=== PATIENT | male | born 1935 | race Caucasian/White ===

== ENCOUNTER 2019-03-29 16:27 | Emergency (ER) | payer OTHER ==
[~2019-03-29] VITALS: Wt 71.7 kg
[2019-03-29] MEDS ORDERED: CEPHALEXIN500 M1 PO (17:19)
== END 2019-03-29 19:45 | disposition home or self-care (01) ==
LOC: ED 16:27
DX: S01.01XA Laceration without foreign body of scalp, initial encounter (principal); W01.0XXA Fall on same level from slipping, tripping and stumbling without subsequent striking against object, initial encounter; Y93.89 Activity, other specified; Y92.098 Other place in other non-institutional residence as the place of occurrence of the external cause; Y99.8 Other external cause status